=== PATIENT | female | born 1995 | race Caucasian/White ===

== ENCOUNTER 2021-01-23 13:55 | Outpatient (CLI) | payer OTHER | END 2021-01-23 14:15 | disposition home or self-care (01) | LOC: RAD 13:55 | PROVIDERS: ATTEND General Practice | DX: M79.671 Pain in right foot (principal); M25.571 Pain in right ankle and joints of right foot ==

== ENCOUNTER 2021-01-26 12:34 | Outpatient (CLI) | payer OTHER | END 2021-01-26 12:49 | disposition home or self-care (01) | LOC: SONOGRAMA 12:34 | PROVIDERS: ATTEND General Practice | DX: M72.2 Plantar fascial fibromatosis (principal); M77.51 Other enthesopathy of right foot and ankle ==

== ENCOUNTER 2023-12-19 12:51 | Emergency (ER) | payer OTHER ==
[~2023-12-19] VITALS: Ht 175.3 cm; Wt 68.0 kg
[2023-12-19] MEDS ORDERED: CLINDAMYCIN PHOSPHATE 150 MG/ML (600mg) IV ONE (14:00)
[2023-12-19 14:13] LABS: HEMATOCRIT 37.4 % (36.0-45.00); HEMOGLOBIN 12.7 g/dL (12.0-15.00); MEAN CORPUSCULAR HEMOGLOBIN 31.2 pg (27.00-32.0); MEAN CORPUSCULAR HGB CONC 33.9 g/dl (32.0-36.0); PLATELET COUNT 268 K/uL (150-450); RED BLOOD COUNT 4.06 M/uL (4.00-6.00); RED CELL DISTRIBUTION WIDTH 12.8 % (11.5-14.5)
== END 2023-12-19 15:37 | disposition home or self-care (01) ==
LOC: ER 12:52
PROVIDERS: Emergency Medicine
DX: N76.4 Abscess of vulva (principal)